=== PATIENT | female | born 1970 ===

== ENCOUNTER → 2019-12-12 09:13 | Outpatient (CLI) | payer OTHER, SELFPAY ==
--- NOTE | ~2019-12-12 | CT_ITS ---
EXAMINATION: CT sinus wo con DATE: 12/12/2019 09:35 INDICATION: Chronic sinusitis TECHNIQUE: Computed tomography (CT) of the paranasal sinuses was performed without intravenous contra st. The dose-length product (DLP) was 302.13 mGy-cm. Iterative reconstruction was used. COMPARISON: None FINDINGS: There is normal development and pneumatization of the paranasal sinuses. There is complete opacification of the left maxillary sinus. There are periapical lucencies surrounding the roots of th e first maxillary molar on the left with disruption of the overlying cortex into the left maxillary s inus. The right ethmoid air cells, right maxillary sinus, bilateral frontal sinuses, and bilateral sp henoid sinuses are clear. There is occlusion of the left ostiomeatal complex. Visualized soft tissues are unremarkable. IMPRESSION: 1. Left maxillary and left ethmoid sinusitis. Periapical lucency and disruption of the overlying shannon ex adjacent to the left first maxillary molar could reflect a component of contributing dental diseas e. Reviewed, dictated and finalized at location B. IMPRESSION: 1. Left maxillary and left ethmoid sinusitis. Periapical lucency and disruption of the overlying cortex adjacent to the left first maxillary molar could refle ct a component of contributing dental disease.
== END ==
PROVIDERS: Visit Provider Otolaryngology
DX: J01.80 Other acute sinusitis (principal)
CPT/HCPCS: 70486